=== PATIENT | female | born 2000 | race Caucasian/White ===

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

== ENCOUNTER 2022-05-10 16:11 | Inpatient (IN) | payer BC ==
[2022-05-10] MEDS ORDERED: Lidocaine 1% 50 ML MDV INJECT PRN (19:12)
[2022-05-10] MEDS ORDERED: Misoprostol 200 MCG Tab PO PRN (19:12)
[2022-05-10] MEDS ORDERED: Misoprostol 25 MCG (1/4 of 100 MCG) Tab VAG PRN ×3 (19:12→19:26)
[2022-05-10] MEDS ORDERED: Terbutaline 1 MG/ML SDV SUBCUT PRN (19:12)
[2022-05-10] MEDS ORDERED: Sodium Chloride 0.9% 2.5 ML Syringe FLUSH PRN (19:12)
[2022-05-10] MEDS ORDERED: Carboprost Tromethamine 250 MCG/1 ML Amp IM PRN (19:12)
[2022-05-10] MEDS ORDERED: Sodium Chloride 0.9% 10 ML Syringe FLUSH PRN (19:12)
[2022-05-10] MEDS ORDERED: Tranexamic Acid 1,000 MG in Sodium Chloride 0.9% 100 ML IV PRN (19:12)
[2022-05-10] MEDS ORDERED: Water For Irrigation,Sterile 1,000 ML Container IRR PRN (19:12)
[2022-05-10] MEDS ORDERED: Sodium Chloride 0.9% 20 ML SDV IV PRN (19:12)
[2022-05-10] MEDS ORDERED: Methylergonovine 0.2 MG/1 ML Amp IM PRN (19:12)
[2022-05-10] MEDS ORDERED: Butorphanol 1 MG/ML SDV IVPUSH PRN (19:12)
[2022-05-10] MEDS ORDERED: Oxytocin/0.9 % Sodium Chloride 30 UNIT/500 ML BAG IV SCH ×2 (19:15)
[2022-05-10] MEDS ORDERED: Ampicillin 2 GM AdvVial IV ONE (20:53)
[2022-05-10] MEDS ORDERED: Sodium Chloride 0.9% 100 ML ONE ×2 (20:56→21:07)
[2022-05-10] MEDS ORDERED: Ampicillin 2 GM in Sodium Chloride 0.9% 100 ML IV ONE (21:00)
[2022-05-10] MEDS: Lactated Ringers 1,000 ML IV SCH (21:01)
[2022-05-11] MEDS: Ondansetron 4 MG/2 ML SDV IVPUSH PRN ×2 (00:41→12:24)
[2022-05-11] MEDS ORDERED: Ampicillin 1 GM Vial ONE (01:03)
[2022-05-11] MEDS: Ampicillin 1 GM in Sodium Chloride 0.9% 50 ML IV SCH ×3 (04:54→13:20)
[2022-05-11] MEDS ORDERED: Ampicillin 1 GM in Sodium Chloride 0.9% 100 ML IV SCH ×3 (05:00)
[2022-05-11 06:31] LABS: CARBON DIOXIDE,CO2 27.1 mmol/L (21.0-32.0); POTASSIUM,K 3.7 mmol/L (3.5-5.1)
[2022-05-11] MEDS: Lactated Ringers 1,000 ML IV SCH (07:42)
[2022-05-11] MEDS ORDERED: fentaNYL 100 MCG/2 ML SDV ONE ×2 (15:34→16:38)
[2022-05-11] MEDS ORDERED: Azithromycin 500 MG Vial ONE (15:43)
[2022-05-11] MEDS ORDERED: Azithromycin 500 MG in Sodium Chloride 0.9% 250 ML IV ONE (15:59)
[2022-05-11] MEDS ORDERED: ceFAZolin 2 GM Vial ONE (16:32)
[2022-05-11] MEDS ORDERED: ePHEDrine 50 MG/ML SDV ONE (16:33)
[2022-05-11] MEDS ORDERED: Ondansetron 4 MG/2 ML SDV ONE (16:33)
[2022-05-11] MEDS ORDERED: Dexamethasone 4 MG/ML 5 ML MDV ONE (16:33)
[2022-05-11] MEDS ORDERED: EPINEPHrine 1 MG/1 ML Amp ONE (16:33)
[2022-05-11] MEDS ORDERED: Phenylephrine 1% 10 MG/ML SDV ONE (16:33)
[2022-05-11] MEDS ORDERED: Ropivacaine 0.5% 5 MG/ML 30 ML SDV ONE (16:38)
[2022-05-11] MEDS ORDERED: Water For Injection, Sterile 20 ML ONE ×2 (16:39→17:30)
[2022-05-11] MEDS ORDERED: Tranexamic Acid 1,000 MG in Sodium Chloride 0.9% 100 ML IV PRN (16:57)
[2022-05-11] MEDS ORDERED: Bisacodyl 10 MG Supp RECTAL PRN (16:57)
[2022-05-11] MEDS ORDERED: Oxytocin 10 Units/1 ML SDV IM PRN (16:57)
[2022-05-11] MEDS ORDERED: Methylergonovine 0.2 MG/1 ML Amp IM PRN (16:57)
[2022-05-11] MEDS ORDERED: Ondansetron 4 MG/2 ML SDV IVPUSH PRN (16:57)
[2022-05-11] MEDS ORDERED: diphenhydrAMINE 50 MG/ML SDV IVPUSH PRN (16:57)
[2022-05-11] MEDS ORDERED: Lanolin 100% Cream 7 GM Tube TOP PRN (16:57)
[2022-05-11] MEDS ORDERED: Misoprostol 200 MCG Tab RECTAL PRN (16:57)
[2022-05-11] MEDS ORDERED: Lactated Ringers 1,000 ML IV SCH (17:00)
[2022-05-11] MEDS ORDERED: Oxytocin/0.9 % Sodium Chloride 30 UNIT/500 ML BAG IV SCH (17:00)
[2022-05-11] MEDS ORDERED: Ketorolac 30 MG/ML SDV ONE (17:30)
[2022-05-11] MEDS ORDERED: Glycopyrrolate 0.2 MG/ML SDV ONE (17:30)
[2022-05-11] MEDS: Ketorolac 30 MG/ML SDV IVPUSH SCH (17:58)
[2022-05-11] MEDS: Docusate Sodium 100 MG Cap PO SCH (21:09)
[2022-05-12] MEDS: Ketorolac 30 MG/ML SDV IVPUSH SCH ×4 (00:38→18:24)
[2022-05-12] MEDS: Docusate Sodium 100 MG Cap PO SCH ×2 (09:16→20:21)
[2022-05-12] MEDS: Prenatal Multivitamin with Calcium/Folic Acid/Iron Tab PO SCH (09:16)
[2022-05-12] MEDS: oxyCODONE 5 MG Tab PO PRN ×2 (18:26→23:32)
[2022-05-12] MEDS ORDERED: Ibuprofen 800 MG Tab PO PRN (23:00)
[2022-05-13] MEDS: oxyCODONE 5 MG Tab PO PRN (07:18)
[2022-05-13 08:51] VITALS: BP 127/83; PULSE 86
[2022-05-13] MEDS: Docusate Sodium 100 MG Cap PO SCH (09:32)
[2022-05-13] MEDS: Prenatal Multivitamin with Calcium/Folic Acid/Iron Tab PO SCH (09:32)
== END 2022-05-13 11:29 | disposition home or self-care (01) | DRG 540 ==
LOC: MW.OB 16:11 → OBSVTOIN 05-11 16:11 → MW.OB 05-11 21:38
PROVIDERS: ADMIT Obstetrics & Gynecology; ATTEND Obstetrics & Gynecology
PROC: 10D00Z1 Extraction of Products of Conception, Low, Open Approach (ICD-10-PCS; principal; 2022-05-11)
DX: O26.62 Liver and biliary tract disorders in childbirth (principal); O32.9XX0 Maternal care for malpresentation of fetus, unspecified, not applicable or unspecified; K83.1 Obstruction of bile duct; Z3A.36 36 weeks gestation of pregnancy; Z37.0 Single live birth; O99.284 Endocrine, nutritional and metabolic diseases complicating childbirth; E53.8 Deficiency of other specified B group vitamins; Z20.822 Contact with and (suspected) exposure to COVID-19; O99.02 Anemia complicating childbirth; D64.9 Anemia, unspecified; O99.324 Drug use complicating childbirth; F12.90 Cannabis use, unspecified, uncomplicated; Z90.49 Acquired absence of other specified parts of digestive tract; O76 Abnormality in fetal heart rate and rhythm complicating labor and delivery
CPT/HCPCS: 36415; 59025; 80053; 82607; 82746; 82803; 84550; 85014; 85018; 85025; 85027; 85384; 85610; 85730; 86592; 86706; 86803; 86850; 86900; 86901; A9270-GY; J0131; J0171; J0290; J0456; J0595; J0690; J1100; J1200; J1790; J1885; J2370; J2405; J2590; J2795; J3010; J3490; J7050; J7120; U0002